=== PATIENT | male | born 1985 | race American Indian/Alaskan Native ===

== ENCOUNTER 2016-11-02 19:39 | Inpatient (IN) | payer MEDICAID, OTHER ==
--- NOTE | 2016-11-02 20:38 | ED PDOC ---
Arrival/HPI - General Chief Complaint: Medical Clearance Time Seen by Provider: 11/02/16 19:47 Historian: Patient - History of Present Illness Narrative History of Present Illness (Text): 11/02/16 20:36 A 31 year old male presents to the emergency department complaining of worsening cough for the past two weeks. Patient reports shortness of breath, body aches and voice changes for the past 3 days. Patient notes also diarrhea and abdominal pain but only associated with coughing but denies any other complaints at this time. Denies any recent travels. Time/Duration: Other (2 weeks, 3 days) Symptom Onset: Sudden Symptom Course: Unchanged Activities at Onset: Rest Context: Home Past Medical History - Provider Review Nursing Documentation Reviewed: Yes - Psychiatric Hx Substance Use: No Family/Social History - Physician Review Nursing Documentation Reviewed: Yes Family/Social History: No Known Family HX Smoking Status: Light Smoker < 10 Cigarettes Daily Hx Alcohol Use: No Hx Substance Use: No Allergies/Home Meds Allergies/Adverse Reactions: Allergies No Known Allergies Allergy (Verified 11/02/16 19:41) Home Medications: Home Meds Medication Instructions Recorded Confirmed No Known Home Med 11/02/16 11/02/16 Review of Systems - Physician Review All systems were reviewed & negative as marked: Yes - Review of Systems Constitutional: Fatigue, Fevers, Other (body aches) Eyes: Normal ENT: Voice Changes, Sore Throat. absent: Rhinorrhea Respiratory: SOB, Cough Cardiovascular: Normal Gastrointestinal: Abdominal Pain, Diarrhea Genitourinary Male: absent: Dysuria Musculoskeletal: Myalgias Skin: absent: Rash Neurological: absent: Headache, Dizziness Endocrine: Normal Hemo/Lymphatic: Normal Psychiatric: Normal Physical Exam Vital Signs Reviewed: Yes Vital Signs Temp Pulse Resp BP Pulse Ox 11/02/16 20:06 102.8 F H 11/02/16 20:00 102.8 F H 11/02/16 19:44 100.3 F H 127 H 24 133/67 94 L Temperature: Febrile Blood Pressure: Normal Pulse: Tachycardic Respiratory Rate: Tachypneic Appearance: Positive for: Ill-Appearing Pain Distress: None Mental Status: Positive for: Alert and Oriented X 3 - Systems Exam Head: Present: Atraumatic, Normocephalic Pupils: Present: PERRL Conjunctiva: Present: Normal Mouth: Present: Moist Mucous Membranes Pharnyx: Present: Normal. No: ERYTHEMA, EXUDATE, TONSILS ENLARGED Neck: Present: Normal Range of Motion Respiratory/Chest: Present: Respiratory Distress, Wheezes (diffuse ), Decreased Breath Sounds (on R side), Tachypneic. No: Accessory Muscle Use Cardiovascular: Present: Normal S1, S2, Tachycardic. No: Murmurs Abdomen: Present: Normal Bowel Sounds. No: Tenderness, Distention, Peritoneal Signs Back: Present: Normal Inspection Upper Extremity: Present: Normal Inspection. No: Cyanosis, Edema Lower Extremity: Present: Normal Inspection. No: Edema Neurological: Present: GCS=15, CN II-XII Intact, Speech Normal Skin: Present: Warm, Dry, Normal Color. No: Rashes Psychiatric: Present: Alert, Oriented x 3, Normal Insight, Normal Concentration Medical Decision Making ED Course and Treatment: 11/02/16 20:33 Impression: A 31 year old male with cough, shortness of breath and body aches. Differential Diagnosis included but are not limited to: Bacterial pneumonia vs. viral pneumonia vs. PCP/HIV vs. lymphoma Plan: -- EKG -- chest xray -- labs -- Urinalysis -- IV fluids, Tylenol -- Reassess and disposition Progress Notes: CXR: R side pneumonia EKG: sinus tachycardia @ [address] dep 1/2 mm; normal axis; normal intervals; no old ekg for comparison. 11/02/16 22:32 Patient with noted history is tachypneic and tacycardic with high fever with initial hypoxia. Given steroids and nebs and IVF and tylenol for fever. CXR showing pneumonia and started on antibiotics (rocephin and azithro for CAP). Labs with marked leukocytosis. lactic acid is less than 2.0 with no evidence of end-organ damage on labs with hemodynamic stability present, so patient does not fit code sepsis criteria. Patient with much improvement with meds with improvement of tachypnea and able to speak much more calmly. Patient with improvement but continue tachypnea and tachycardia with WBC of 25K - will need admission for iv antibiotics, steroids, nebs, pulmonary, and ID consult. Case discussed with on-call medical physician, Dr. Gamble, who has accepted the patient to her service. She requested a CT scan of the chest with IV contrast. Consult placed for Dr. Gamble for ID consult. She said she will determine tomorrow if she will get a pulmonary consult. - Lab Interpretations Lab Results: 11/02/16 19:55 11/02/16 19:55 Lab Results 11/02/16 19:55: Sodium 136, Chloride 93 L, Potassium 3.9, Carbon Dioxide 31, Anion Gap 16, BUN 5 L, Creatinine 0.9, Est GFR ( Amer) > 60, Est GFR (Non -Af Amer) > 60, Random Glucose 131 H, Calcium 10.0, Phosphorus 2.9, Magnesium 1.7, Total Bilirubin 1.6 H, Direct Bilirubin 0.6 H, AST 43, ALT 35, Alkaline Phosphatase 171 H, Lactate Dehydrogenase 504, Total Creatine Kinase 303 H, CK- MB (CK-2) 0.5, CK-MB (CK-2) % Cancelled, Troponin I < 0.01, NT-Pro-B Natriuret Pep 13.5, Total Protein 9.2 H, Albumin 4.3, Globulin 5.0, Albumin/Globulin Ratio 0.9 L, Lipase 23, Plasma Cortisol PM Pending 11/02/16 19:55: pO2 30, VBG pH 7.33, VBG pCO2 60.0, VBG HCO3 31.6 H, VBG Total CO2 33.4 H, VBG O2 Sat (Calc) 56.5, VBG Base Excess 4.0 H, VBG Potassium 4.4, Sodium 136.0, Chloride 98.0, Glucose 143 H, Lactate 1.8, FiO2 21.0, Venous Blood Potassium 4.4 11/02/16 19:55: PT 11.1, INR 1.03, APTT 33.3 H 11/02/16 19:55: WBC 25.8 H*, RBC 4.61, Hgb 15.3, Hct 42.4, MCV 92.0, MCH 33.2, MCHC 36.1, RDW 13.7, Plt Count 331, MPV 10.7, Neutrophils % (Manual) 69, Band Neutrophils % 5 H, Lymphocytes % (Manual) 12 L, Monocytes % (Manual) 12 H, Eosinophils % (Manual) 2, Platelet Evaluation Normal, Giant Platelets Present, ESR 15 I have reviewed the lab results: Yes - RAD Interpretation Radiology Orders: 11/02/16 20:29 CHEST PORTABLE [RAD] Stat 11/02/16 21:46 ANGIO CHEST PE PROTOCOL [CT] Stat - EKG Interpretation Interpreted by ED Physician: Yes Type: 12 lead EKG - Medication Orders Current Medication Orders: Guaifenesin/Codeine Phosphate (Robitussin W/Codeine) 10 ml PO ONCE STA Stop: 11/02/16 22:30 Levalbuterol HCl (Xopenex) 1.25 mg IH STAT STA Stop: 11/02/16 22:30 Discontinued Medications Acetaminophen (Tylenol 325mg Tab) 975 mg PO STAT STA Stop: 11/02/16 20:02 Last Admin: 11/02/16 20:06 Dose: 975 mg Guaifenesin (Robitussin) 400 mg PO ONCE STA Stop: 11/02/16 20:46 Last Admin: 11/02/16 21:00 Dose: 400 mg Sodium Chloride 2,720 ml/ IV (SUPPLIES) 2,720 mls @ 5,443.08 mls/hr IV ONCE ONE PRN Reason: 60 ML/KG/HR Stop: 11/02/16 20:30 Last Admin: 11/02/16 20:44 Dose: 5,443.08 mls/hr Ceftriaxone Sodium (Rocephin 1 Gram Ivpb) 1 gm in 100 mls @ 200 mls/hr IV ONCE STA PRN Reason: Protocol Stop: 11/02/16 21:15 Last Admin: 11/02/16 20:59 Dose: 200 mls/hr Azithromycin (Zithromax 500mg In Ns) 500 mg in 250 mls @ 250 mls/hr IVPB ONCE ONE Stop: 11/02/16 21:59 Last Admin: 11/02/16 21:28 Dose: 250 mls/hr Iohexol (Omnipaque 350 150 Ml) Confirm Administered Dose 150 ml .ROUTE .STK-MED ONE Stop: 11/02/16 21:55 Ipratropium Caro (Atrovent) 0.5 mg IH STAT STA Stop: 11/02/16 20:46 Last Admin: 11/02/16 21:10 Dose: 0.5 mg Ipratropium Caro (Atrovent) 0.5 mg IH STAT STA Stop: 11/02/16 20:46 Last Admin: 11/02/16 21:34 Dose: 0.5 mg Levalbuterol HCl (Xopenex) 1.25 mg IH STAT STA Stop: 11/02/16 20:46 Last Admin: 11/02/16 21:10 Dose: 1.25 mg Levalbuterol HCl (Xopenex) 1.25 mg IH STAT STA Stop: 11/02/16 20:46 Last Admin: 11/02/16 21:34 Dose: 1.25 mg Methylprednisolone (Solu-Medrol) 125 mg IVP STAT STA Stop: 11/02/16 20:45 Last Admin: 11/02/16 20:59 Dose: 125 mg Ondansetron HCl (Zofran Inj) Confirm Administered Dose 4 mg .ROUTE .STK-MED ONE Stop: 11/02/16 22:24 Last Admin: 11/02/16 22:27 Dose: 4 mg Comments: As per Dr. Olson. due to an episode during CT. - Scribe Statement The provider has reviewed the documentation as recorded by the Niharika Esteves Provider Scribe Attestation: All medical record entries made by the Salmaibcari were at my direction and personally dictated by me. I have reviewed the chart and agree that the record accurately reflects my personal performance of the history, physical exam, medical decision making, and the department course for this patient. I have also personally directed, reviewed, and agree with the discharge instructions and disposition. Disposition/Present on Arrival - Present on Arrival Any Indicators Present on Arrival: No History of DVT/PE: No History of Uncontrolled Diabetes: No Urinary Catheter: No History of Decub. Ulcer: No History Surgical Site Infection Following: None - Disposition Have Diagnosis and Disposition been Completed?: Yes Diagnosis: Pneumonia, Fever Disposition: HOSPITALIZED Disposition Time: 20:45 Patient Plan: Admission, Telemetry Condition: STABLE
[2016-11-02] MEDS ORDERED: guaiFENesin 200 mg/10 ml Syrup UD PO STA (20:45)
[2016-11-02] MEDS ORDERED: Ipratropium 0.02% Inhal Soln (0.5 mg/2.5 ml) UD IH STA ×2 (20:45)
[2016-11-02] MEDS ORDERED: Levalbuterol 1.25 MG/3 ML Inhal Soln UD IH STA ×3 (20:45→22:29)
[2016-11-02] MEDS ORDERED: cefTRIAXone 1 gm 1 GM/100 ML BAG IV STA (20:46)
[2016-11-02] MEDS ORDERED: Azithromycin 500 MG in Azithromycin 500MG/NS 250ml 250 ML IVPB STA (20:46)
[2016-11-02 20:50] LABS: VENOUS BLOOD PH 7.33 (7.32-7.43)
[2016-11-02 20:54] LABS: HEMATOCRIT 42.4 % (42.0-52.0); MEAN CORPUSCULAR HEMOGLOBIN 33.2 pg (25.0-35.0); MEAN CORPUSCULAR HGB CONC 36.1 g/dl (31.0-37.0); MEAN PLATELET VOLUME 10.7 fl (7.0-11.0); PLATELET COUNT 331 10^3/uL (120.0-450.0); RED CELL DISTRIBUTION WIDTH 13.7 % (11.5-14.5)
[2016-11-02 20:57] LABS: ADD MANUAL DIFF? YES; WHITE BLOOD COUNT 25.8 10^3/ul (4.5-11.0)
[2016-11-02 20:59] LABS: ALB/GLOB RATIO 0.9 (1.1-1.8); ALKALINE PHOSPHATASE 171 U/L (38-133); ALT/SGPT 35 U/L (7-56); AST/SGOT 43 U/L (15-59); BILIRUBIN,DIRECT 0.6 mg/dL (0.0-0.4); BILIRUBIN,TOTAL 1.6 mg/dL (0.2-1.3); BLOOD UREA NITROGEN 5 mg/dL (7-21); CARBON DIOXIDE 31 mmol/L (21-33); CHLORIDE 93 mmol/L (98-107); GFR AFRICAN-AMERICAN > 60; GLUCOSE,RANDOM 131 mg/dL (70-110); LIPASE 23 U/L (23-300); MAGNESIUM 1.7 mg/dL (1.7-2.2); PHOSPHOROUS 2.9 mg/dL (2.5-4.5); POTASSIUM 3.9 mmol/L (3.6-5.0); SODIUM 136 mmol/L (132-148); TOTAL PROTEIN 9.2 g/dL (5.8-8.3)
[2016-11-02] MEDS ORDERED: Azithromycin 500MG/NS 250ml 500 MG/250 ML BAG IVPB ONE (21:00)
[2016-11-02 21:08] LABS: INR 1.03 (0.93-1.08); PARTIAL THROMBOPLASTIN TIME 33.3 Seconds (23.7-30.8)
[2016-11-02 21:14] LABS: TROPONIN I < 0.01 ng/mL
[2016-11-02 21:57] LABS: BAND 5 % (0-2); EOSINOPHIL 2 % (0.0-3.0); GIANT PLATELETS PRESENT; NEUTROPHIL 69 % (50.0-70.0); PLATELET ESTIMATE NORMAL (NORMAL)
[2016-11-02 22:16] LABS: ERYTHROCYTE SEDIMENTATION RATE 15 mm/hr (0.0-15.0)
[2016-11-02] MEDS ORDERED: guaiFENesin-Codeine 100-10mg/5ml Syrup (5 ml) UD PO STA (22:29)
[2016-11-02 23:49] LABS: URINE BILIRUBIN NEGATIVE (NEGATIVE); URINE BLOOD MODERATE (NEGATIVE); URINE GLUCOSE (UA) NEGATIVE (NEGATIVE); URINE KETONE 15 mg/dL (NEGATIVE); URINE LEUKOCYTE ESTERASE NEGATIVE Leu/uL (NEGATIVE); URINE PROTEIN 100 mg/dL (<30 mg/dL); URINE UROBILINOGEN 0.2 E.U./dL (<1 E.U./dL)
[2016-11-02 23:52] LABS: URINE APPEARANCE SL CLOUDY (CLEAR); URINE COLOR YELLOW (YELLOW)
[2016-11-03 00:10] LABS: URINE EPITHELIAL CELLS 0 - 2 /hpf (0-5)
[2016-11-03 00:11] LABS: URINE WBC 0 - 2 /hpf (0-6)
[2016-11-03] MEDS: Sodium Chloride 0.9% 1,000 ML IV SCH ×3 (00:18→20:15)
--- NOTE | 2016-11-03 00:27 | CT ---
EXAM: CT Angiography Chest With Intravenous Contrast CLINICAL HISTORY: 31 years old, male; Signs and symptoms; Cough and shortness of breath; Symptoms not specified; Additional info: SOB; R/O pe and pneumonia TECHNIQUE: Axial computed tomographic angiography images of the chest with intravenous contrast using pulmonary embolism protocol. This CT exam was performed using one or more of the following dose reduction techniques: automated exposure control, adjustment of the mA and/or kV according to patient size, and/or use of iterative reconstruction technique. MIP reconstructed images were created and reviewed. Coronal and sagittal reformatted images were created and reviewed. CONTRAST: 149 mL of omni 350 administered intravenously. EXAM DATE/TIME: 11/02/2016 9:46 PM COMPARISON: DX - CHEST PORTABLE 11/02/2016 8:39:38 PM FINDINGS: There are numerous peripheral blebs and bulla more prominent on the right. There is dense nodular infiltrate in the right middle and lower lung with a large area of consolidation in the medial right lower lung. There are a few small clusters of nodular infiltrate in the upper lungs bilaterally. Right hilar lymph nodes are present. There are numerous pleural-based nodules are noted in the right upper lung images 135, 140, 178, 184, 215 and left lung image 156, all of which measure 3-4 mm. Follow up based on Jackie criteria. No pulmonary embolism. No aortic dissection or aneurysm. No pleural or pericardial effussions. IMPRESSION: Bilateral infiltrates most notably in the right mid and lower lung presumably of infectious etiology. Dense consolidation in the medial right lower lung likely of infectious/atelectatic etiology however underlying neoplasm would be difficult to exclude and followup is recommended to ensure complete resolution. Pulmonary nodules as discussed above.
[2016-11-03] MEDS: guaiFENesin DM 200 mg-20 mg/10 ml UD PO PRN ×3 (01:48→19:36)
[2016-11-03 02:14] VITALS: BMI 24.3
--- NOTE | 2016-11-03 04:57 | CP.PCM.PN ---
Subjective - Date & Time of Evaluation Date of Evaluation: 11/03/16 Time of Evaluation: 04:41 - Subjective Subjective: Patient was seen at bedside for complaint of cough. Apparently is on Robitussin DM which is not helping him. Has johnson cough which has worsened for past 4 days. Cough is present for total of 3 weeks. Mostly dry cough. Sometimes thick. No hemoptysis, no weight loss. Not on Iván inhibitors. ROS:Except as mentioned above. This 31 year old male was admitted with worsening cough, sob, body aches,fever, change in voice/PNA. Has PMH of smoker, marijuana user. Objective - Vital Signs/Intake and Output Vital Signs (last 24 hours): Temp Pulse Resp BP Pulse Ox 98.2 F 72 22 135/88 96 11/03/16 02:03 11/03/16 02:03 11/03/16 02:03 11/03/16 02:03 11/02/16 23:48 - Medications Medications: Current Medications Acetaminophen (Tylenol 325mg Tab) 650 mg PO Q6H PRN PRN Reason: Fever >100.4 F Enoxaparin Sodium (Lovenox) 40 mg SC DAILY OVI PRN Reason: Protocol Guaifenesin/Dextromethorphan (Robitussin Dm) 10 ml PO Q6H PRN PRN Reason: Cough Last Admin: 11/03/16 01:48 Dose: 10 ml Ceftriaxone Sodium (Rocephin 1 Gram Ivpb) 1 gm in 100 mls @ 100 mls/hr IVPB DAILY OVI PRN Reason: Protocol Sodium Chloride (Sodium Chloride 0.9%) 1,000 mls @ 100 mls/hr IV .Q10H OVI Stop: 11/04/16 00:15 Last Admin: 11/03/16 00:18 Dose: 100 mls/hr Azithromycin (Zithromax 500mg In Ns) 500 mg in 250 mls @ 167 mls/hr IVPB DAILY OVI PRN Reason: Protocol - Labs Labs: PT 11.1 Seconds (9.9-11.8) 11/02/16 19:55 INR 1.03 (0.93-1.08) 11/02/16 19:55 APTT 33.3 Seconds (23.7-30.8) H 11/02/16 19:55 - Constitutional Appears: Well, No Acute Distress - Head Exam Head Exam: ATRAUMATIC, NORMAL INSPECTION, NORMOCEPHALIC - Eye Exam Eye Exam: Normal appearance - ENT Exam ENT Exam: Normal External Ear Exam - Neck Exam Neck Exam: Normal Inspection - Respiratory Exam Respiratory Exam: Clear to Ausculation Bilateral, NORMAL BREATHING PATTERN. absent: Accessory Muscle Use, Rales, Rhonchi, Wheezes, Respiratory Distress, Stridor - Cardiovascular Exam Cardiovascular Exam: absent: JVD - GI/Abdominal Exam GI & Abdominal Exam: absent: Distended - Rectal Exam Rectal Exam: Deferred - Extremities Exam Extremities Exam: Normal Inspection - Back Exam Back Exam: NORMAL INSPECTION - Neurological Exam Neurological Exam: Alert, Oriented x3 - Psychiatric Exam Psychiatric exam: Normal Affect, Normal Mood - Skin Skin Exam: Normal Color Assessment and Plan - Assessment and Plan (Free Text) Assessment: Cough. Right sided PNA. Smoker. Marijuana user. Plan: Codeine phosphate 30 mg PO stat. Continue present management.
--- NOTE | 2016-11-03 08:26 | RAD ---
HISTORY: Sepsis Patient COMPARISON: No prior. FINDINGS: LUNGS: The lungs are well inflated and clear. PLEURA: No significant pleural effusion identified, no pneumothorax apparent. CARDIOVASCULAR: Normal. OSSEOUS STRUCTURES: No significant abnormalities. VISUALIZED UPPER ABDOMEN: Normal. OTHER FINDINGS: None. IMPRESSION: No active pulmonary disease.
[2016-11-03] MEDS ORDERED: Benzocaine/Menthol (Cepacol) Lozenge MT PRN (08:48)
--- NOTE | 2016-11-03 09:04 | PN ---
DATE: 11/03/2016 The patient is in bed in no acute distress, nontoxic. No fevers, no chills. He was seen earlier tod miller. He states he had a rough night and unable to get adequate sleep. PHYSICAL EXAMINATION: VITAL SIGNS: Temperature is 98. The T-max is 102. Blood pressure is 150/90, respiratory rate of 20 , heart rate of 98. HEENT: Unremarkable. NECK: Supple. LUNGS: Have decreased breath sounds. HEART: Normal S1, S2. ABDOMEN: Soft, nontender. LABORATORY EXAMINATION: Reveals a white count of 25,000, hemoglobin 15. Coagulation is noted. Gase s are noted. Chemistries reveal the BUN of 5, creatinine of 0.9. Total bili is 1.6. LDH is 504. U rinalysis is noted and toxicology is noted. Microbiology is pending. The patient had a CAT scan of the chest: Dense consolidation, medial right lower lung infectious et iology. ASSESSMENT AND PLAN: This is a 31-year-old male who presents to the Emergency Room, cough for 2 week s, shortness of breath, aches, also had diarrhea and abdominal pain with a fever, tachycardia, dyspne a, with leukocytosis with shortness of breath and with sepsis with a right-sided community-acquired p neumonia. Currently, blood cultures are pending. Sputum cultures are pending. Urine for Legionella antigen is pending. Procalcitonin is pending. The patient is on ceftriaxone and azithromycin. ___ _ will be added, and we will make further recommendations. We will follow closely with you. Craig Meadows MD cc: [phone] TT: 11/03/2016 09:03:47 Confirmation # [id number] Dictation # [id number] drake
[2016-11-03 09:26] LABS: BASO # 0.04 K/mm3 (0.0-2.0); BASO % 0.2 % (0.0-3.0); GRAN # 22.76 (1.4-6.5); GRAN % 89.1 % (50.0-68.0); HEMATOCRIT 38.4 % (42.0-52.0); LYMPH # 1.6 (1.2-3.4); LYMPH % 6.2 % (22.0-35.0); MEAN CELL VOLUME 90.4 fL (80.0-105.0); MEAN CORPUSCULAR HGB CONC 35.4 g/dl (31.0-37.0); MEAN PLATELET VOLUME 10.2 fl (7.0-11.0); MONO # 1.2 (0.1-0.6); MONO % 4.5 % (1.0-6.0); PLATELET COUNT 330 10^3/uL (120.0-450.0); RED CELL DISTRIBUTION WIDTH 13.7 % (11.5-14.5)
[2016-11-03 09:29] LABS: WHITE BLOOD COUNT 25.6 10^3/ul (4.5-11.0)
[2016-11-03 09:30] LABS: ADD MANUAL DIFF? NO
[2016-11-03 09:34] LABS: ALB/GLOB RATIO 0.9 (1.1-1.8); ALKALINE PHOSPHATASE 124 U/L (38-133); ALT/SGPT 30 U/L (7-56); AST/SGOT 28 U/L (15-59); BILIRUBIN,TOTAL 0.8 mg/dL (0.2-1.3); BLOOD UREA NITROGEN 7 mg/dL (7-21); CALCIUM 9.7 mg/dL (8.4-10.5); CARBON DIOXIDE 28 mmol/L (21-33); CHLORIDE 101 mmol/L (98-107); GFR AFRICAN-AMERICAN > 60; GLUCOSE,RANDOM 132 mg/dL (70-110); POTASSIUM 4.7 mmol/L (3.6-5.0); SODIUM 139 mmol/L (132-148); TOTAL PROTEIN 8.3 g/dL (5.8-8.3)
[2016-11-03] MEDS: Enoxaparin 40 mg Syringe SC SCH (10:50)
[2016-11-03] MEDS: Azithromycin 500MG/NS 250ml 500 MG/250 ML BAG IVPB SCH (10:50)
[2016-11-03] MEDS: cefTRIAXone 1 gm 1 GM/100 ML BAG IVPB SCH (10:52)
--- NOTE | 2016-11-03 23:24 | CARD ---
APPROVED REPORT EKG Measurement Heart [id number] <Conclusion> Sinus tachycardia Otherwise normal ECG
--- NOTE | 2016-11-04 00:16 | CP.PCM.HP ---
History of Present Illness - History of Present Illness History of Present Illness: A 31 yr old male with hx of smoking , weed use came with c\o cough and cold for last 2 weeks came with hx of fever high grade since Monday with thick greenish phlegm.did se OTC meds no help. for last 2 days symptoms getting worse .so came to ER. not able to work. denies sick contacts CXR showed possible pneumonia labs- [id number] Present on Admission - Present on Admission Any Indicators Present on Admission: No Review of Systems - Constitutional Constitutional: Chills, Fatigue, Fever, Headache. absent: Night Sweats, Snoring , Weight Loss - EENT Eyes: absent: Other Visual Disturbances Ears: absent: Decreased Hearing Nose/Mouth/Throat: Nasal Congestion, Hoarsness, Sore Throat. absent: Nose Pain , Post Nasal Drip, Dysphagia, Mouth Lesions - Cardiovascular Cardiovascular: Dyspnea on Exertion, Lightheadedness, Palpitations. absent: Chest Pain, Pedal Edema, Syncope - Respiratory Respiratory: Cough, Hemoptysis, Wheezing, Chest Congestion, Excessive Mucous Production, Change in Mucous Color - Gastrointestinal Gastrointestinal: absent: Abdominal Pain, Constipation, Dyspepsia, Hematochezia , Nausea, Vomiting - Genitourinary Genitourinary: absent: Flank Pain, Urinary Frequency - Musculoskeletal Musculoskeletal: Myalgias. absent: Arthralgias - Integumentary Integumentary: absent: Erythema, Lesions, Rash - Neurological Neurological: Headaches. absent: Paresthesias, Other Visual Disturbances - Psychiatric Psychiatric: absent: Behavioral Changes, Hallucinations - Endocrine Endocrine: Fatigue. absent: Excessive Sweating - Hematologic/Lymphatic Hematologic: absent: Easy Bruising, Lymphadenopathy Past Patient History - Past Social History Smoking Status: Current Some Days Smoker - CARDIAC Hx Cardiac Disorders: No Hx Angina: No Hx Cardia Arrhythmia: No Hx Circulatory Problems: No Hx Congestive Heart Failure: No Hx Heart Murmur: No Hx Heart Transplant: No Hx Hypercholesterolemia: No Hx Hypertension: No Hx Internal Defibrillator: No Hx Mitral Valve Prolapse: No Hx Pacemaker: No Hx Peripheral Edema: No Hx Peripheral Vascular Disease: No - PULMONARY Hx Respiratory Disorders: Yes Hx Asthma: No Hx Bronchitis: Yes Hx Chronic Obstructive Pulmonary Disease (COPD): No Hx Emphysema: No Hx Pneumonia: No Hx Respiratory Aspiration: No Hx Respiratory Tract Infection: Yes Hx Sleep Apnea: No Hx Tuberculosis: No - NEUROLOGICAL Hx Neurological Disorder: No Hx Alzheimer's Disease: No HX Cerebrovascular Accident: No Hx Dementia: No Hx Dizziness: No Hx Meningitis: No Hx Migraine: No Hx Parkinson's Disease: No Hx Seizures: No Hx Transient Ischemic Attacks (TIA): No - HEENT Hx HEENT Problems: No Hx Blind: No Hx Cataracts: No Hx Deafness: No Hx Difficulty Chewing: No Hx Epistaxis: No Hx Glaucoma: No Hx Macular Degeneration: No - RENAL Hx Chronic Kidney Disease: No Hx Dialysis: No Hx Kidney Stones: No Hx Neurogenic Bladder: No Hx Pyelonephritis: No Hx Renal (Kidney) Cancer: No Hx Renal Failure: No - ENDOCRINE/METABOLIC Hx Endocrine Disorders: No Hx Adrenal Cancer: No Hx Diabetes Insipidus: No Hx Diabetes Mellitus Type 1: No Hx Diabetes Mellitus Type 2: No Hx Hyperthyroidism: No Hx Hypothyroidism: No Hx Systemic Lupus Erythematosus: No - HEMATOLOGICAL/ONCOLOGICAL Hx Blood Disorders: No Hx AIDS: No Hx Anemia: No Hx Cancer: No Hx Chemotherapy: No Hx Cirrhosis: No Hx Hemophilia: No Hx Hepatitis A: No Hx Hepatitis B: No Hx Hepatitis C: No Hx Human Immunodeficiency Virus (HIV): No Hx Metastesis: No Hx Shingles: No Hx Sickle Cell Disease: No Hx Unexplained Bleeding: No - INTEGUMENTARY Hx Dermatological Problems: No Hx Basil Cell: No Hx Eczema: No Hx Melanoma: No Hx Psoriasis: No Hx Squamous Cell: No - MUSCULOSKELETAL/RHEUMATOLOGICAL Hx Musculoskeletal Disorders: No Hx Arthritis: No Hx Back Pain: No Hx Degenerative Joint Disease: No Hx Falls: No Hx Fractures: No Hx Gout: No Hx Herniated Disk: No Hx Myasthenia Gravis: No Hx Osteoarthritis: No Hx Osteomyelitis: No Hx Osteoporosis: No Hx Rhabdomyolysis: No Hx Spinal Stenosis: No Hx Unsteady Gait: No - GASTROINTESTINAL Hx Gastrointestinal Disorders: No Hx Colostomy: No Hx Crohn's Disease: No Hx Diverticulitis: No Hx Gall Bladder Disease: No Hx Gastroesophageal Reflux: No Hx Ileostomy: No Hx Liver Failure: No Hx Pancreatitis: No HX Swallowing Problems: No Hx Ulcer: No - GENITOURINARY/GYNECOLOGICAL Hx Genitourinary Disorders: No Hx Hematuria: No Hx Incontinence: No Hx Prostate Problems: No Hx Sexually Transmitted Disorders: No Hx Urinary Tract Infection: No - PSYCHIATRIC Hx Psychophysiologic Disorder: Yes Hx Anxiety: Yes Hx Bipolar Disorder: No Hx Depression: Yes Hx Emotional Abuse: No Hx Hallucinations: No Hx Panic Symptoms: No Hx Paranoia: No Hx Post Traumatic Stress Disorder: No Hx Psychosis: No Hx Physical Abuse: No Hx Schizophrenia: No Hx Sexual Abuse: No Hx Substance Use: Yes (smokes marijuana) - SURGICAL HISTORY Hx Surgeries: No Hx Amputation: No Hx Appendectomy: No Hx Cardiac Catheterization: No Hx Cholecystectomy: No Hx Coronary Stent: No Hx Gastric Bypass Surgery: No Hx Hysterectomy: No Hx Joint Replacement: No Hx Kidney Transplant: No Hx Liver Transplant: No Hx Mastectomy: No Hx Musculoskeletal Surgery: No Hx Open Heart Surgery: No Hx Orthopedic Surgery: No Hx Splenectomy: No Hx Valve Replacement: No Meds Home Medications: Home Medication List Medication Instructions Recorded Confirmed Type levoFLOXacin [Levaquin] 750 mg PO DAILY #7 tab 11/06/16 Rx Allergies/Adverse Reactions: Allergies Allergy/AdvReac Type Severity Reaction Status Date / Time No Known Allergies Allergy Verified 11/02/16 19:41 Physical Exam - Constitutional Appears: No Acute Distress - Head Exam Head Exam: ATRAUMATIC, NORMAL INSPECTION, NORMOCEPHALIC - Eye Exam Eye Exam: EOMI, PERRL. absent: Scleral icterus - ENT Exam ENT Exam: Normal Exam - Neck Exam Neck exam: Positive for: Normal Inspection. Negative for: Lymphadenopathy - Respiratory Exam Respiratory Exam: Rhonchi. absent: Rales, Wheezes, Respiratory Distress, Stridor Additional comments: right side - Cardiovascular Exam Cardiovascular Exam: REGULAR RHYTHM, +S1, +S2. absent: JVD, Systolic Murmur - GI/Abdominal Exam GI & Abdominal Exam: Normal Bowel Sounds, Soft. absent: Organomegaly, Tenderness - Extremities Exam Extremities exam: Positive for: normal inspection, pedal pulses present. Negative for: pedal edema, tenderness - Back Exam Back exam: NORMAL INSPECTION. absent: CVA tenderness (L), CVA tenderness (R), paraspinal tenderness - Neurological Exam Neurological exam: Alert, Normal Gait, Oriented x3 - Psychiatric Exam Psychiatric exam: Normal Affect, Normal Mood - Skin Skin Exam: Intact, Normal Color, Warm Results - Vital Signs Recent Vital Signs: Last Vital Signs Temp 98.7 F 11/03/16 17:41 Pulse 89 11/03/16 22:00 Resp 20 11/03/16 17:41 BP 144/88 11/03/16 17:41 Pulse Ox 100 11/03/16 05:42 - Labs Result Diagrams: 11/06/16 06:00 11/06/16 06:00 Labs: Laboratory Results - last 24 hr 11/02/16 11/03/16 11/03/16 23:10 08:45 08:45 WBC 25.6 H* RBC 4.25 Hgb 13.6 L Hct 38.4 L MCV 90.4 MCH 32.0 MCHC 35.4 RDW 13.7 Plt Count 330 MPV 10.2 Gran % 89.1 H Lymph % (Auto) 6.2 L Hardin % (Auto) 4.5 Eos % (Auto) 0.0 L Baso % (Auto) 0.2 Gran # 22.76 H Lymph # 1.6 Hardin # 1.2 H Eos # 0.0 Baso # 0.04 Sodium Potassium Chloride Carbon Dioxide Anion Gap BUN Creatinine Est GFR ( Amer) Est GFR (Non-Af Amer) Random Glucose Hemoglobin A1c 5.4 Calcium Total Bilirubin AST ALT Alkaline Phosphatase Total Protein Albumin Globulin Albumin/Globulin Ratio Ur L.pneumophila Ag Negative 11/03/16 08:45 WBC RBC Hgb Hct MCV MCH MCHC RDW Plt Count MPV Gran % Lymph % (Auto) Hardin % (Auto) Eos % (Auto) Baso % (Auto) Gran # Lymph # Hardin # Eos # Baso # Sodium 139 Potassium 4.7 Chloride 101 Carbon Dioxide 28 Anion Gap 15 BUN 7 Creatinine 0.8 Est GFR ( Amer) > 60 Est GFR (Non-Af Amer) > 60 Random Glucose 132 H Hemoglobin A1c Calcium 9.7 Total Bilirubin 0.8 AST 28 ALT 30 Alkaline Phosphatase 124 Total Protein 8.3 Albumin 3.9 Globulin 4.4 Albumin/Globulin Ratio 0.9 L Ur L.pneumophila Ag - EKG Data EKG shows normal: ST-T waves Rate: Normal - Imaging and Cardiology Chest x-ray Status: Report reviewed by me CT scan - chest Status: Report reviewed by me Assessment & Plan (1) Fever Status: Acute (2) Pneumonia Status: Acute (3) Tobacco use Status: Acute (4) Cannabis abuse, uncomplicated Status: Acute - Assessment and Plan (Free Text) Plan: 1. blood and sputum c\s x 2 2. iv rocephin and zithromax 3. ivf 4. echo 5. ct chest 6. discus about smoke and weed use 7.hiv etc Decision To Admit - Pt Status Changed To: Hospital Disposition Of: Inpatient Admission - Admit Certification Admit to Inpatient:: After my assessment, the patient will require hospitalization for at least two midnights. This is because of the severity of symptoms shown, intensity of services needed, and/or the medical risk in this patient being treated as an outpatient. - . Bed Request Type: Telemetry Admitting Physician: Annika Gamble
[2016-11-04] MEDS: guaiFENesin DM 200 mg-20 mg/10 ml UD PO PRN (05:44)
[2016-11-04 08:12] LABS: HEMATOCRIT 40.2 % (42.0-52.0); MEAN CELL VOLUME 91.4 fL (80.0-105.0); MEAN CORPUSCULAR HGB CONC 36.1 g/dl (31.0-37.0); MEAN PLATELET VOLUME 10.2 fl (7.0-11.0); PLATELET COUNT 354 10^3/uL (120.0-450.0)
[2016-11-04 08:21] LABS: ADD MANUAL DIFF? NO; BASO # 0.15 K/mm3 (0.0-2.0); BASO % 0.4 % (0.0-3.0); GRAN # 26.35 (1.4-6.5); GRAN % 74.2 % (50.0-68.0); LYMPH # 4.7 (1.2-3.4); LYMPH % 13.2 % (22.0-35.0); MONO # 4.3 (0.1-0.6); MONO % 12.2 % (1.0-6.0)
[2016-11-04 08:23] LABS: ALB/GLOB RATIO 0.9 (1.1-1.8); ALKALINE PHOSPHATASE 231 U/L (38-133); ALT/SGPT 119 U/L (7-56); AST/SGOT 101 U/L (15-59); BILIRUBIN,TOTAL 0.7 mg/dL (0.2-1.3); BLOOD UREA NITROGEN 9 mg/dL (7-21); CALCIUM 9.8 mg/dL (8.4-10.5); CARBON DIOXIDE 29 mmol/L (21-33); CHLORIDE 100 mmol/L (98-107); GFR AFRICAN-AMERICAN > 60; GLUCOSE,RANDOM 107 mg/dL (70-110); POTASSIUM 4.1 mmol/L (3.6-5.0); SODIUM 140 mmol/L (132-148); TOTAL PROTEIN 8.7 g/dL (5.8-8.3)
[2016-11-04 08:26] LABS: WHITE BLOOD COUNT 35.2 10^3/ul (4.5-11.0)
[2016-11-04] MEDS: Promethazine/Cod 6.25mg-10mg/5ml Syr UD PO PRN ×2 (08:27→18:24)
[2016-11-04] MEDS: Enoxaparin 40 mg Syringe SC SCH (09:59)
[2016-11-04] MEDS: cefTRIAXone 1 gm 1 GM/100 ML BAG IVPB SCH (10:00)
[2016-11-04] MEDS: Azithromycin 500MG/NS 250ml 500 MG/250 ML BAG IVPB SCH (11:13)
[2016-11-04] MEDS: Vancomycin 1gm in NS 250ml 1 GM/250 ML BAG IVPB SCH ×2 (14:05→21:14)
--- NOTE | 2016-11-04 18:58 | CP.PCM.PN ---
Subjective - Date & Time of Evaluation Date of Evaluation: 11/04/16 Time of Evaluation: 09:40 - Subjective Subjective: Patient is still having cough and SOB, although a little better. No fevers overnight. Objective - Vital Signs/Intake and Output Vital Signs (last 24 hours): Temp Pulse Resp BP Pulse Ox 98.5 F 101 H 20 138/99 H 96 11/04/16 17:47 11/04/16 18:00 11/04/16 17:47 11/04/16 17:47 11/04/16 06:00 Intake and Output: 11/04/16 11/04/16 06:59 18:59 Intake Total 1460 660 Output Total 1075 300 Balance 385 360 - Medications Medications: Current Medications Acetaminophen (Tylenol 325mg Tab) 650 mg PO Q6H PRN PRN Reason: Fever >100.4 F Last Admin: 11/04/16 05:41 Dose: 650 mg Benzocaine/Menthol (Cepacol Sore Throat) 1 kenyatta MT Q2H PRN PRN Reason: Sore Throat Last Admin: 11/04/16 18:25 Dose: 1 kenyatta Enoxaparin Sodium (Lovenox) 40 mg SC DAILY OVI PRN Reason: Protocol Last Admin: 11/04/16 09:59 Dose: 40 mg Guaifenesin/Dextromethorphan (Robitussin Dm) 10 ml PO Q6H PRN PRN Reason: Cough Last Admin: 11/04/16 05:44 Dose: 10 ml Ceftriaxone Sodium (Rocephin 1 Gram Ivpb) 1 gm in 100 mls @ 100 mls/hr IVPB DAILY OVI PRN Reason: Protocol Last Admin: 11/04/16 10:00 Dose: 100 mls/hr Azithromycin (Zithromax 500mg In Ns) 500 mg in 250 mls @ 167 mls/hr IVPB DAILY OVI PRN Reason: Protocol Last Admin: 11/04/16 11:13 Dose: 167 mls/hr Vancomycin HCl (Vancomycin 1gm) 1 gm in 250 mls @ 167 mls/hr IVPB Q12H OVI PRN Reason: Protocol Last Admin: 11/04/16 14:05 Dose: 167 mls/hr Promethazine HCl/Codeine (Phenergan/Codeine Oral Syrup) 7.5 ml PO BID PRN PRN Reason: Cough and congestion Last Admin: 11/04/16 18:24 Dose: 7.5 ml Tramadol HCl (Ultram) 50 mg PO Q8 PRN PRN Reason: Pain, moderate (4-7) Last Admin: 11/04/16 08:26 Dose: 50 mg - Labs Labs: 11/04/16 07:45 11/04/16 07:45 PT 11.1 Seconds (9.9-11.8) 11/02/16 19:55 INR 1.03 (0.93-1.08) 11/02/16 19:55 APTT 33.3 Seconds (23.7-30.8) H 11/02/16 19:55 - Constitutional Appears: Non-toxic, No Acute Distress - Head Exam Head Exam: NORMAL INSPECTION - Neck Exam Neck Exam: absent: Meningismus - Respiratory Exam Respiratory Exam: Decreased Breath Sounds - Cardiovascular Exam Cardiovascular Exam: +S1, +S2 - GI/Abdominal Exam GI & Abdominal Exam: Soft. absent: Tenderness Assessment and Plan - Assessment and Plan (Free Text) Plan: Assessment Sepsis due to right sided community-acquired pneumonia Plan Will starte Vancomycin and continue Rocephin and Zithromax day 2 pending final blood cx results will monitor clinically
[2016-11-04] MEDS ORDERED: Promethazine/Cod 6.25mg-10mg/5ml Syr UD PO STA (23:09)
--- NOTE | 2016-11-05 01:37 | CP.PCM.PN ---
Subjective - Date & Time of Evaluation Date of Evaluation: 11/04/16 Time of Evaluation: 20:00 - Subjective Subjective: c\o back pain being in bed.feels better, afebrile after admission wbc- 35 c\s still pending. Objective - Vital Signs/Intake and Output Vital Signs (last 24 hours): Temp Pulse Resp BP Pulse Ox 99 F 101 H 20 135/94 H 95 11/05/16 00:01 11/05/16 00:01 11/05/16 00:01 11/05/16 00:01 11/05/16 00:01 Intake and Output: 11/04/16 11/05/16 18:59 06:59 Intake Total 660 Output Total 300 Balance 360 - Medications Medications: Current Medications Acetaminophen (Tylenol 325mg Tab) 650 mg PO Q6H PRN PRN Reason: Fever >100.4 F Last Admin: 11/04/16 05:41 Dose: 650 mg Benzocaine/Menthol (Cepacol Sore Throat) 1 kenyatta MT Q2H PRN PRN Reason: Sore Throat Last Admin: 11/04/16 18:25 Dose: 1 kenyatta Enoxaparin Sodium (Lovenox) 40 mg SC DAILY OVI PRN Reason: Protocol Last Admin: 11/04/16 09:59 Dose: 40 mg Guaifenesin/Dextromethorphan (Robitussin Dm) 10 ml PO Q6H PRN PRN Reason: Cough Last Admin: 11/04/16 05:44 Dose: 10 ml Ceftriaxone Sodium (Rocephin 1 Gram Ivpb) 1 gm in 100 mls @ 100 mls/hr IVPB DAILY OVI PRN Reason: Protocol Last Admin: 11/04/16 10:00 Dose: 100 mls/hr Azithromycin (Zithromax 500mg In Ns) 500 mg in 250 mls @ 167 mls/hr IVPB DAILY OVI PRN Reason: Protocol Last Admin: 11/04/16 11:13 Dose: 167 mls/hr Vancomycin HCl (Vancomycin 1gm) 1 gm in 250 mls @ 167 mls/hr IVPB Q12H OVI PRN Reason: Protocol Last Admin: 11/04/16 21:14 Dose: 167 mls/hr Promethazine HCl/Codeine (Phenergan/Codeine Oral Syrup) 7.5 ml PO BID PRN PRN Reason: Cough and congestion Last Admin: 11/04/16 18:24 Dose: 7.5 ml Tramadol HCl (Ultram) 50 mg PO Q8 PRN PRN Reason: Pain, moderate (4-7) Last Admin: 11/04/16 08:26 Dose: 50 mg - Labs Labs: 11/04/16 07:45 11/04/16 07:45 PT 11.1 Seconds (9.9-11.8) 11/02/16 19:55 INR 1.03 (0.93-1.08) 11/02/16 19:55 APTT 33.3 Seconds (23.7-30.8) H 11/02/16 19:55 - Additional Findings Additional findings: Constitutional Appears: No Acute Distress - Head Exam Head Exam: ATRAUMATIC, NORMAL INSPECTION, NORMOCEPHALIC - Eye Exam Eye Exam: EOMI, PERRL. absent: Scleral icterus - ENT Exam ENT Exam: Normal Exam - Neck Exam Neck exam: Positive for: Normal Inspection. Negative for: Lymphadenopathy - Respiratory Exam Respiratory Exam: Rhonchi. absent: Rales, Wheezes, Respiratory Distress, Stridor Additional comments: right side - Cardiovascular Exam Cardiovascular Exam: REGULAR RHYTHM, +S1, +S2. absent: JVD, Systolic Murmur - GI/Abdominal Exam GI & Abdominal Exam: Normal Bowel Sounds, Soft. absent: Organomegaly, Tenderness - Extremities Exam Extremities exam: Positive for: normal inspection, pedal pulses present. Negative for: pedal edema, tenderness - Back Exam Back exam: NORMAL INSPECTION. absent: CVA tenderness (L), CVA tenderness (R), paraspinal tenderness - Neurological Exam Neurological exam: Alert, Normal Gait, Oriented x3 - Psychiatric Exam Psychiatric exam: Normal Affect, Normal Mood - Skin Skin Exam: Intact, Normal Color, Warm Assessment and Plan (1) Pneumonia Status: Acute (2) Hepatitis Status: Acute (3) Back pain Status: Acute (4) Fever Status: Resolved - Assessment and Plan (Free Text) Plan: monitor LFTS 2. back pain likley due to bed 3. pain meds PRN 4. hepb\hep c 5.ID consults 6. vanco added
[2016-11-05 07:34] LABS: HEMATOCRIT 42.3 % (42.0-52.0); MEAN CELL VOLUME 91.8 fL (80.0-105.0); MEAN CORPUSCULAR HEMOGLOBIN 32.8 pg (25.0-35.0); MEAN CORPUSCULAR HGB CONC 35.7 g/dl (31.0-37.0); MEAN PLATELET VOLUME 10.2 fl (7.0-11.0); RED CELL DISTRIBUTION WIDTH 14.4 % (11.5-14.5); WHITE BLOOD COUNT 22.3 10^3/ul (4.5-11.0)
[2016-11-05 08:02] LABS: ALB/GLOB RATIO 0.9 (1.1-1.8); ALKALINE PHOSPHATASE 154 U/L (38-133); ALT/SGPT 87 U/L (7-56); AST/SGOT 49 U/L (15-59); BILIRUBIN,TOTAL 0.7 mg/dL (0.2-1.3); BLOOD UREA NITROGEN 8 mg/dL (7-21); CALCIUM 9.4 mg/dL (8.4-10.5); CARBON DIOXIDE 30 mmol/L (21-33); CHLORIDE 98 mmol/L (98-107); GFR AFRICAN-AMERICAN > 60; GLUCOSE,RANDOM 87 mg/dL (70-110); POTASSIUM 4.1 mmol/L (3.6-5.0); SODIUM 137 mmol/L (132-148); TOTAL PROTEIN 8.2 g/dL (5.8-8.3)
[2016-11-05] MEDS: Vancomycin 1gm in NS 250ml 1 GM/250 ML BAG IVPB SCH ×2 (08:27→21:01)
[2016-11-05] MEDS: Enoxaparin 40 mg Syringe SC SCH (10:36)
[2016-11-05] MEDS: cefTRIAXone 1 gm 1 GM/100 ML BAG IVPB SCH (10:36)
[2016-11-05] MEDS: Azithromycin 500MG/NS 250ml 500 MG/250 ML BAG IVPB SCH (11:16)
--- NOTE | 2016-11-05 14:11 | CP.PCM.PN ---
Subjective - Date & Time of Evaluation Date of Evaluation: 11/05/16 Time of Evaluation: 11:00 - Subjective Subjective: Feeling better today, breathing better, no fevers overnight. Objective - Vital Signs/Intake and Output Vital Signs (last 24 hours): Temp Pulse Resp BP Pulse Ox 98.4 F 90 20 137/87 96 11/05/16 06:00 11/05/16 06:00 11/05/16 06:00 11/05/16 06:00 11/05/16 06:00 Intake and Output: 11/05/16 11/05/16 06:59 18:59 Intake Total 370 Output Total 600 Balance -230 - Medications Medications: Current Medications Acetaminophen (Tylenol 325mg Tab) 650 mg PO Q6H PRN PRN Reason: Fever >100.4 F Last Admin: 11/04/16 05:41 Dose: 650 mg Benzocaine/Menthol (Cepacol Sore Throat) 1 kenyatta MT Q2H PRN PRN Reason: Sore Throat Last Admin: 11/04/16 18:25 Dose: 1 kenyatta Enoxaparin Sodium (Lovenox) 40 mg SC DAILY OVI PRN Reason: Protocol Last Admin: 11/04/16 09:59 Dose: 40 mg Guaifenesin/Dextromethorphan (Robitussin Dm) 10 ml PO Q6H PRN PRN Reason: Cough Last Admin: 11/04/16 05:44 Dose: 10 ml Ceftriaxone Sodium (Rocephin 1 Gram Ivpb) 1 gm in 100 mls @ 100 mls/hr IVPB DAILY OVI PRN Reason: Protocol Last Admin: 11/04/16 10:00 Dose: 100 mls/hr Azithromycin (Zithromax 500mg In Ns) 500 mg in 250 mls @ 167 mls/hr IVPB DAILY OVI PRN Reason: Protocol Last Admin: 11/04/16 11:13 Dose: 167 mls/hr Vancomycin HCl (Vancomycin 1gm) 1 gm in 250 mls @ 167 mls/hr IVPB Q12H OVI PRN Reason: Protocol Last Admin: 11/05/16 08:27 Dose: 167 mls/hr Promethazine HCl/Codeine (Phenergan/Codeine Oral Syrup) 7.5 ml PO BID PRN PRN Reason: Cough and congestion Last Admin: 11/04/16 18:24 Dose: 7.5 ml Tramadol HCl (Ultram) 50 mg PO Q8 PRN PRN Reason: Pain, moderate (4-7) Last Admin: 11/04/16 08:26 Dose: 50 mg - Labs Labs: 11/05/16 07:00 11/05/16 07:00 PT 11.1 Seconds (9.9-11.8) 11/02/16 19:55 INR 1.03 (0.93-1.08) 11/02/16 19:55 APTT 33.3 Seconds (23.7-30.8) H 11/02/16 19:55 - Constitutional Appears: Non-toxic, No Acute Distress - Head Exam Head Exam: NORMAL INSPECTION - ENT Exam ENT Exam: Mucous Membranes Moist - Neck Exam Neck Exam: absent: Lymphadenopathy, Meningismus - Respiratory Exam Respiratory Exam: Decreased Breath Sounds - Cardiovascular Exam Cardiovascular Exam: +S1, +S2 - GI/Abdominal Exam GI & Abdominal Exam: Soft. absent: Tenderness Assessment and Plan - Assessment and Plan (Free Text) Plan: Assessment Sepsis due to right sided community-acquired pneumonia, clinically improving Plan on Vancomycin, Rocephin and Zithromax day 3; cultures have been negative - will continue to trend WBC count and monitor clinically
[2016-11-05] MEDS: guaiFENesin DM 200 mg-20 mg/10 ml UD PO PRN (22:54)
[2016-11-06 02:15] VITALS: RESP 20
[2016-11-06 07:14] LABS: ALB/GLOB RATIO 0.8 (1.1-1.8); ALKALINE PHOSPHATASE 130 U/L (38-133); ALT/SGPT 104 U/L (7-56); AST/SGOT 57 U/L (15-59); BILIRUBIN,TOTAL 0.5 mg/dL (0.2-1.3); BLOOD UREA NITROGEN 8 mg/dL (7-21); CALCIUM 9.3 mg/dL (8.4-10.5); CARBON DIOXIDE 28 mmol/L (21-33); CHLORIDE 101 mmol/L (98-107); GFR AFRICAN-AMERICAN > 60; GLUCOSE,RANDOM 110 mg/dL (70-110); POTASSIUM 4.5 mmol/L (3.6-5.0); SODIUM 137 mmol/L (132-148); TOTAL PROTEIN 8.1 g/dL (5.8-8.3)
[2016-11-06 07:17] LABS: HEMATOCRIT 43.1 % (42.0-52.0); MEAN CELL VOLUME 91.1 fL (80.0-105.0); MEAN CORPUSCULAR HEMOGLOBIN 32.1 pg (25.0-35.0); MEAN CORPUSCULAR HGB CONC 35.3 g/dl (31.0-37.0); MEAN PLATELET VOLUME 9.9 fl (7.0-11.0); RED CELL DISTRIBUTION WIDTH 14.2 % (11.5-14.5)
[2016-11-06 07:36] VITALS: BP 135/87; PULSE 92; TEMP 98; O2SAT 95
[2016-11-06] MEDS: Vancomycin 1gm in NS 250ml 1 GM/250 ML BAG IVPB SCH (08:39)
--- NOTE | 2016-11-06 10:31 | CP.PCM.PN ---
Subjective - Date & Time of Evaluation Date of Evaluation: 11/05/16 Time of Evaluation: 10:00 - Subjective Subjective: clinically improving wbc-22 afebrile has have cough wants to go home c\s -so far negative LFTS trending down. hep b\c ,hiv negative Objective - Vital Signs/Intake and Output Vital Signs (last 24 hours): Temp Pulse Resp BP Pulse Ox 98 F 92 H 20 135/87 95 11/06/16 06:00 11/06/16 06:00 11/06/16 06:00 11/06/16 06:00 11/06/16 06:00 Intake and Output: 11/06/16 11/06/16 06:59 18:59 Intake Total 2350 Output Total 1000 Balance 1350 - Medications Medications: Current Medications Acetaminophen (Tylenol 325mg Tab) 650 mg PO Q6H PRN PRN Reason: Fever >100.4 F Last Admin: 11/04/16 05:41 Dose: 650 mg Benzocaine/Menthol (Cepacol Sore Throat) 1 kenyatta MT Q2H PRN PRN Reason: Sore Throat Last Admin: 11/04/16 18:25 Dose: 1 kenyatta Enoxaparin Sodium (Lovenox) 40 mg SC DAILY OVI PRN Reason: Protocol Last Admin: 11/05/16 10:36 Dose: 40 mg Guaifenesin/Dextromethorphan (Robitussin Dm) 10 ml PO Q6H PRN PRN Reason: Cough Last Admin: 11/05/16 22:54 Dose: 10 ml Ceftriaxone Sodium (Rocephin 1 Gram Ivpb) 1 gm in 100 mls @ 100 mls/hr IVPB DAILY OVI PRN Reason: Protocol Last Admin: 11/05/16 10:36 Dose: 100 mls/hr Azithromycin (Zithromax 500mg In Ns) 500 mg in 250 mls @ 167 mls/hr IVPB DAILY OVI PRN Reason: Protocol Last Admin: 11/05/16 11:16 Dose: 167 mls/hr Vancomycin HCl (Vancomycin 1gm) 1 gm in 250 mls @ 167 mls/hr IVPB Q12H OVI PRN Reason: Protocol Last Admin: 11/06/16 08:39 Dose: 167 mls/hr Promethazine HCl/Codeine (Phenergan/Codeine Oral Syrup) 7.5 ml PO BID PRN PRN Reason: Cough and congestion Last Admin: 11/04/16 18:24 Dose: 7.5 ml Tramadol HCl (Ultram) 50 mg PO Q8 PRN PRN Reason: Pain, moderate (4-7) Last Admin: 11/04/16 08:26 Dose: 50 mg - Labs Labs: 11/06/16 06:00 11/06/16 06:00 PT 11.1 Seconds (9.9-11.8) 11/02/16 19:55 INR 1.03 (0.93-1.08) 11/02/16 19:55 APTT 33.3 Seconds (23.7-30.8) H 11/02/16 19:55 - Additional Findings Additional findings: Constitutional Appears: No Acute Distress - Head Exam Head Exam: ATRAUMATIC, NORMAL INSPECTION, NORMOCEPHALIC - Eye Exam Eye Exam: EOMI, PERRL. absent: Scleral icterus - ENT Exam ENT Exam: Normal Exam - Neck Exam Neck exam: Positive for: Normal Inspection. Negative for: Lymphadenopathy - Respiratory Exam Respiratory Exam: Rhonchi. absent: Rales, Wheezes, Respiratory Distress, Stridor Additional comments: right side - Cardiovascular Exam Cardiovascular Exam: REGULAR RHYTHM, +S1, +S2. absent: JVD, Systolic Murmur - GI/Abdominal Exam GI & Abdominal Exam: Normal Bowel Sounds, Soft. absent: Organomegaly, Tenderness - Extremities Exam Extremities exam: Positive for: normal inspection, pedal pulses present. Negative for: pedal edema, tenderness - Back Exam Back exam: NORMAL INSPECTION. absent: CVA tenderness (L), CVA tenderness (R), para spinal tenderness - Neurological Exam Neurological exam: Alert, Normal Gait, Oriented x3 - Psychiatric Exam Psychiatric exam: Normal Affect, Normal Mood - Skin Skin Exam: Intact, Normal Color, Warm Assessment and Plan (1) Back pain Status: Acute (2) Hepatitis Status: Acute (3) Pneumonia Status: Acute - Assessment and Plan (Free Text) Plan: continue abx improving if remain afebrile will d\c home in am
--- NOTE | 2016-11-06 10:36 | CP.PCM.DIS ---
Provider - Provider Date of Admission: 11/02/16 22:03 Attending physician: Annika Gamble MD Time Spent in preparation of Discharge (in minutes): 30 Diagnosis - Discharge Diagnosis (1) Pneumonia Status: Acute (2) Hepatitis Status: Acute (3) Tobacco use Status: Chronic (4) Cannabis abuse, uncomplicated Status: Chronic Comment: clinically imroved except cough. needs rpt imaging for pneumonia resolutuin \ underlying cancer to be exclude. continue meds. f\u LFTS. f\u with me next 12 noon. d\c home on levquin for 7 days. d\w patient in detail. also discuss about quitting smoking \weed use Hospital Course - Lab Results Lab Results: Micro Results 11/03/16 11:04 Sputum Gram Stain - Final 11/03/16 11:04 Sputum Sputum Culture - Final NORMAL ORAL JOSSELIN 11/02/16 23:10 Urine,Clean Catch Urine Culture - Final No Growth (<1,000 CFU/ML) Most Recent Lab Values WBC 21.0 10^3/ul (4.5-11.0) H 11/06/16 06:00 RBC 4.73 10^6/uL (3.5-6.1) 11/06/16 06:00 Hgb 15.2 gm/dL (14.0-18.0) 11/06/16 06:00 Hct 43.1 % (42.0-52.0) 11/06/16 06:00 MCV 91.1 fL (80.0-105.0) 11/06/16 06:00 MCH 32.1 pg (25.0-35.0) 11/06/16 06:00 MCHC 35.3 g/dl (31.0-37.0) 11/06/16 06:00 RDW 14.2 % (11.5-14.5) 11/06/16 06:00 Plt Count 374 10^3/uL (120.0-450.0) 11/06/16 06:00 MPV 9.9 fl (7.0-11.0) 11/06/16 06:00 Gran % 74.2 % (50.0-68.0) H 11/04/16 07:45 Lymph % (Auto) 13.2 % (22.0-35.0) L 11/04/16 07:45 [place] % (Auto) 12.2 % (1.0-6.0) H 11/04/16 07:45 Eos % (Auto) 0.0 % (1.5-5.0) L 11/04/16 07:45 Baso % (Auto) 0.4 % (0.0-3.0) 11/04/16 07:45 Gran # 26.35 (1.4-6.5) H 11/04/16 07:45 Lymph # 4.7 (1.2-3.4) H 11/04/16 07:45 [place]os # 4.3 (0.1-0.6) H 11/04/16 07:45 Eos # 0.0 (0.0-0.7) 11/04/16 07:45 Baso # 0.15 K/mm3 (0.0-2.0) 11/04/16 07:45 Neutrophils % (Manual) 69 % (50.0-70.0) 11/02/16 19:55 Band Neutrophils % 5 % (0-2) H 11/02/16 19:55 Lymphocytes % (Manual) 12 % (22.0-35.0) L 11/02/16 19:55 Monocytes % (Manual) 12 % (1.0-6.0) H 11/02/16 19:55 Eosinophils % (Manual) 2 % (0.0-3.0) 11/02/16 19:55 Platelet Evaluation Normal (NORMAL) 11/02/16 19:55 Giant Platelets Present 11/02/16 19:55 ESR 15 mm/hr (0.0-15.0) 11/02/16 19:55 PT 11.1 Seconds (9.9-11.8) 11/02/16 19:55 INR 1.03 (0.93-1.08) 11/02/16 19:55 APTT 33.3 Seconds (23.7-30.8) H 11/02/16 19:55 pO2 30 mm/Hg (30-55) 11/02/16 19:55 VBG pH 7.33 (7.32-7.43) 11/02/16 19:55 VBG pCO2 60.0 (40-60) 11/02/16 19:55 VBG HCO3 31.6 mmol/l (21-28) H 11/02/16 19:55 VBG Total CO2 33.4 mmol.L (22-28) H 11/02/16 19:55 VBG O2 Sat (Calc) 56.5 % (40-65) 11/02/16 19:55 VBG Base Excess 4.0 mmol/L (0.0-2.0) H 11/02/16 19:55 VBG Potassium 4.4 mmol/L (3.6-5.2) 11/02/16 19:55 Sodium 136.0 mmol/L (132-148) 11/02/16 19:55 Chloride 98.0 mmol/L (98-107) 11/02/16 19:55 Glucose 143 mg/dl (75-110) H 11/02/16 19:55 Lactate 1.8 mmol/L (0.7-2.1) 11/02/16 19:55 FiO2 21.0 % 11/02/16 19:55 Sodium 137 mmol/L (132-148) 11/06/16 06:00 Potassium 4.5 mmol/L (3.6-5.0) 11/06/16 06:00 Chloride 101 mmol/L (98-107) 11/06/16 06:00 Carbon Dioxide 28 mmol/L (21-33) 11/06/16 06:00 Anion Gap 13 (10-20) 11/06/16 06:00 BUN 8 mg/dL (7-21) 11/06/16 06:00 Creatinine 0.9 mg/dL (0.5-1.4) 11/06/16 06:00 Est GFR ( Amer) > 60 11/06/16 06:00 Est GFR (Non-Af Amer) > 60 11/06/16 06:00 Random Glucose 110 mg/dL (70-110) 11/06/16 06:00 Hemoglobin A1c 5.4 % (4.2-6.5) 11/03/16 08:45 Calcium 9.3 mg/dL (8.4-10.5) 11/06/16 06:00 Phosphorus 2.9 mg/dL (2.5-4.5) 11/02/16 19:55 Magnesium 1.7 mg/dL (1.7-2.2) 06/14/17 19:55 Total Bilirubin 0.5 mg/dL (0.2-1.3) 11/06/16 06:00 Direct Bilirubin 0.6 mg/dL (0.0-0.4) H 11/02/16 19:55 AST 57 U/L (15-59) 11/06/16 06:00 ALT 104 U/L (7-56) H 11/06/16 06:00 Alkaline Phosphatase 130 U/L (38-133) 11/06/16 06:00 Lactate Dehydrogenase 504 U/L (333-699) 11/02/16 19:55 Total Creatine Kinase 303 U/L (35-230) H 11/02/16 19:55 CK-MB (CK-2) 0.5 ng/mL (0.0-3.6) 11/02/16 19:55 CK-MB (CK-2) % Cancelled 11/02/16 19:55 Troponin I < 0.01 ng/mL 11/02/16 19:55 C-React Prot High Sens > 15.00 mg/L (1.00-3.00) H 11/02/16 19:55 NT-Pro-B Natriuret Pep 13.5 pg/mL (0-450) 11/02/16 19:55 Total Protein 8.1 g/dL (5.8-8.3) 11/06/16 06:00 Albumin 3.7 g/dL (3.0-4.8) 11/06/16 06:00 Globulin 4.5 gm/dL 11/06/16 06:00 Albumin/Globulin Ratio 0.8 (1.1-1.8) L 11/06/16 06:00 Lipase 23 U/L (23-300) 11/02/16 19:55 Procalcitonin 0.45 NG/ML (0.19-0.49) 11/02/16 19:55 Plasma Cortisol PM 25.2 ug/dL (1.7-14.1) H 11/02/16 19:55 Venous Blood Potassium 4.4 mmol/L (3.6-5.2) 11/02/16 19:55 Urine Color Yellow (YELLOW) 11/02/16 23:10 Urine Appearance Sl cloudy (CLEAR) 11/02/16 23:10 Urine pH 6.0 (4.7-8.0) 11/02/16 23:10 Ur Specific Butler 1.020 (1.005-1.035) 11/02/16 23:10 Urine Protein 100 mg/dL (<30 mg/dL) H 11/02/16 23:10 Urine Glucose (UA) Negative mg/dL (NEGATIVE) 11/02/16 23:10 Urine Ketones 15 mg/dL (NEGATIVE) H 11/02/16 23:10 Urine Blood Moderate (NEGATIVE) H 11/02/16 23:10 Urine Nitrate Negative (NEGATIVE) 11/02/16 23:10 Urine Bilirubin Negative (NEGATIVE) 11/02/16 23:10 Urine Urobilinogen 0.2 E.U./dL (<1 E.U./dL) 11/02/16 23:10 Ur Leukocyte Esterase Negative Cassandra/uL (NEGATIVE) 11/02/16 23:10 Urine RBC 2 - 5 /hpf (0-2) 11/02/16 23:10 Urine WBC 0 - 2 /hpf (0-6) 11/02/16 23:10 Ur Epithelial Cells 0 - 2 /hpf (0-5) 11/02/16 23:10 Urine Opiates Screen Negative (NEGATIVE) 11/02/16 23:10 Urine Methadone Screen Negative (NEGATIVE) 11/02/16 23:10 Ur Barbiturates Screen Negative (NEGATIVE) 11/02/16 23:10 Ur Phencyclidine Scrn Negative (NEGATIVE) 11/02/16 23:10 Ur Amphetamines Screen Negative (NEGATIVE) 11/02/16 23:10 U Benzodiazepines Scrn Negative (NEGATIVE) 11/02/16 23:10 U Oth Cocaine Metabols Negative (NEGATIVE) 11/02/16 23:10 U Cannabinoids Screen Positive (NEGATIVE) H 11/02/16 23:10 C.trachomatis RNA (TMA) Not detected (Not Detected) 11/03/16 11:04 Hep Bs Antigen Negative (NEGATIVE) 11/04/16 06:30 Hep Bs Antibody Negative (NEGATIVE) 11/04/16 06:30 Hep B Core IgM Ab Negative (NEGATIVE) 11/04/16 06:30 Hepatitis C Antibody Negative (NEGATIVE) 11/04/16 06:30 HIV 1&2 Ag/Ab, 4th Gen Nonreactive (Nonreactive) 11/03/16 08:45 HIV 1&2 Antibody Screen Negative (NEGATIVE) 11/04/16 07:45 Ur L.pneumophila Ag Negative (NEGATIVE) 11/02/16 23:10 N.gonorrhoeae RNA (TMA) Not detected (Not Detected) 11/03/16 11:04 - Hospital Course Hospital Course: uneventful Discharge Exam - Head Exam Head Exam: NORMAL INSPECTION - Additional Findings Additional findings: Constitutional Appears: No Acute Distress - Head Exam Head Exam: ATRAUMATIC, NORMAL INSPECTION, NORMOCEPHALIC - Eye Exam Eye Exam: EOMI, PERRL. absent: Scleral icterus - ENT Exam ENT Exam: Normal Exam - Neck Exam Neck exam: Positive for: Normal Inspection. Negative for: Lymphadenopathy - Respiratory Exam Respiratory Exam: Rhonchi. absent: Rales, Wheezes, Respiratory Distress, Stridor Additional comments: right side - Cardiovascular Exam Cardiovascular Exam: REGULAR RHYTHM, +S1, +S2. absent: JVD, Systolic Murmur - GI/Abdominal Exam GI & Abdominal Exam: Normal Bowel Sounds, Soft. absent: Organomegaly, Tenderness - Extremities Exam Extremities exam: Positive for: normal inspection, pedal pulses present. Negative for: pedal edema, tenderness - Back Exam Back exam: NORMAL INSPECTION. absent: CVA tenderness (L), CVA tenderness (R), paraspinal tenderness - Neurological Exam Neurological exam: Alert, Normal Gait, Oriented x3 - Psychiatric Exam Psychiatric exam: Normal Affect, Normal Mood - Skin Skin Exam: Intact, Normal Color, Warm Discharge Plan - Discharge Medications Prescriptions: levoFLOXacin [Levaquin] 750 mg PO DAILY #7 tab - Follow Up Plan Condition: STABLE Disposition: HOME/ ROUTINE Instructions: Levofloxacin (By mouth), How to Stop Smoking (DC), Pneumonia (DC) Additional Instructions: advise to repeat CT roya in 4-6 weeks. discuss if worse to come back to ER
[2016-11-06] MEDS: Enoxaparin 40 mg Syringe SC SCH (10:58)
[2016-11-06] MEDS: Azithromycin 500MG/NS 250ml 500 MG/250 ML BAG IVPB SCH (10:58)
[2016-11-06] MEDS: cefTRIAXone 1 gm 1 GM/100 ML BAG IVPB SCH (10:58)
--- NOTE | 2016-11-06 11:52 | CP.PCM.PN ---
Subjective - Date & Time of Evaluation Date of Evaluation: 11/06/16 Time of Evaluation: 10:10 - Subjective Subjective: Patient is feeling better, no fevers overnight, still with cough but better, no diarrhea. Objective - Vital Signs/Intake and Output Vital Signs (last 24 hours): Temp Pulse Resp BP Pulse Ox 98 F 92 H 20 135/87 95 11/06/16 06:00 11/06/16 06:00 11/06/16 06:00 11/06/16 06:00 11/06/16 06:00 Intake and Output: 11/06/16 11/06/16 06:59 18:59 Intake Total 2350 Output Total 1000 Balance 1350 - Medications Medications: Current Medications Acetaminophen (Tylenol 325mg Tab) 650 mg PO Q6H PRN PRN Reason: Fever >100.4 F Last Admin: 11/04/16 05:41 Dose: 650 mg Benzocaine/Menthol (Cepacol Sore Throat) 1 kenyatta MT Q2H PRN PRN Reason: Sore Throat Last Admin: 11/04/16 18:25 Dose: 1 kenyatta Enoxaparin Sodium (Lovenox) 40 mg SC DAILY OVI PRN Reason: Protocol Last Admin: 11/05/16 10:36 Dose: 40 mg Guaifenesin/Dextromethorphan (Robitussin Dm) 10 ml PO Q6H PRN PRN Reason: Cough Last Admin: 11/05/16 22:54 Dose: 10 ml Ceftriaxone Sodium (Rocephin 1 Gram Ivpb) 1 gm in 100 mls @ 100 mls/hr IVPB DAILY OVI PRN Reason: Protocol Last Admin: 11/05/16 10:36 Dose: 100 mls/hr Azithromycin (Zithromax 500mg In Ns) 500 mg in 250 mls @ 167 mls/hr IVPB DAILY OVI PRN Reason: Protocol Last Admin: 11/05/16 11:16 Dose: 167 mls/hr Vancomycin HCl (Vancomycin 1gm) 1 gm in 250 mls @ 167 mls/hr IVPB Q12H OVI PRN Reason: Protocol Last Admin: 11/06/16 08:39 Dose: 167 mls/hr Promethazine HCl/Codeine (Phenergan/Codeine Oral Syrup) 7.5 ml PO BID PRN PRN Reason: Cough and congestion Last Admin: 11/04/16 18:24 Dose: 7.5 ml Tramadol HCl (Ultram) 50 mg PO Q8 PRN PRN Reason: Pain, moderate (4-7) Last Admin: 11/04/16 08:26 Dose: 50 mg - Labs Labs: 11/06/16 06:00 11/06/16 06:00 PT 11.1 Seconds (9.9-11.8) 11/02/16 19:55 INR 1.03 (0.93-1.08) 11/02/16 19:55 APTT 33.3 Seconds (23.7-30.8) H 11/02/16 19:55 - Constitutional Appears: Non-toxic, No Acute Distress - Head Exam Head Exam: NORMAL INSPECTION - Neck Exam Neck Exam: absent: Meningismus - Respiratory Exam Respiratory Exam: Decreased Breath Sounds - Cardiovascular Exam Cardiovascular Exam: +S1, +S2 - GI/Abdominal Exam GI & Abdominal Exam: Soft. absent: Tenderness Assessment and Plan - Assessment and Plan (Free Text) Plan: Assessment Sepsis due to right sided community-acquired pneumonia, clinically improving Plan on Vancomycin, Rocephin and Zithromax day 4; cultures have been negative - will continue to trend WBC count and monitor clinically; when ready for discharge, the patient may be switched to PO Levaquin 750 mg daily for another 5 days with outpatient follow up with PMD
== END 2016-11-06 12:23 | disposition home or self-care (01) | DRG 871 ==
LOC: ED 19:39 → ERH 22:03 → 2RNO 11-03 00:28
PROVIDERS: ADMIT Internal Medicine; ATTEND Internal Medicine
DX: A41.9 Sepsis, unspecified organism (principal); J18.9 Pneumonia, unspecified organism; K75.9 Inflammatory liver disease, unspecified; F17.200 Nicotine dependence, unspecified, uncomplicated; F12.10 Cannabis abuse, uncomplicated